=== PATIENT | male | born 1985 | race Two or more races ===

== ENCOUNTER 2017-12-13 09:39 | Outpatient (CLI) | payer OTHER | END 2017-12-13 09:55 | disposition home or self-care (01) | LOC: TOM 09:39 | DX: Q61.3 Polycystic kidney, unspecified (principal) ==

== ENCOUNTER 2017-12-25 18:38 | Emergency (ER) | payer OTHER ==
[~2017-12-25] VITALS: Ht 182.9 cm; Wt 72.6 kg
== END 2017-12-26 13:31 | disposition home or self-care (01) ==
LOC: ER 18:38
DX: B34.9 Viral infection, unspecified (principal); K52.9 Noninfective gastroenteritis and colitis, unspecified

== ENCOUNTER 2019-01-12 08:20 | Outpatient (CLI) | payer OTHER | END 2019-01-12 08:37 | disposition home or self-care (01) | LOC: SONOGRAMA 08:20 | DX: Q61.2 Polycystic kidney, adult type (principal) ==

== ENCOUNTER 2019-07-06 14:11 | Emergency (ER) | payer OTHER ==
[~2019-07-06] VITALS: Ht 182.9 cm; Wt 74.8 kg
[2019-07-06] MEDS ORDERED: DICLOFENAC SODI75 MG PO (17:00)
== END 2019-07-06 17:19 | disposition home or self-care (01) ==
LOC: ER 14:11
DX: M79.18 Myalgia, other site (principal)

== ENCOUNTER 2019-09-14 13:25 | Outpatient (CLI) | payer OTHER ==
[~2019-09-14 13:25] MED LIST: DICLOFENAC SODI75 MG PO
== END 2019-09-14 13:35 | disposition home or self-care (01) ==
LOC: RAD 13:25
DX: R05 Cough (principal)

== ENCOUNTER 2020-12-04 08:13 | Outpatient (CLI) | payer OTHER | END 2020-12-04 08:26 | disposition home or self-care (01) | LOC: SONOGRAMA 08:13 | PROVIDERS: ATTEND General Practice | DX: Q61.2 Polycystic kidney, adult type (principal) ==